=== PATIENT | male | born 2000 | race American Indian/Alaskan Native ===

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

== ENCOUNTER 2021-12-29 10:47 | Emergency (ER) | payer SELFPAY ==
[2021-12-29 11:12] VITALS: BP 149/93
== END 2021-12-30 01:34 | disposition left against medical advice (07) ==
LOC: ED 10:47
DX: Z04.1 Encounter for examination and observation following transport accident (principal); Z53.21 Procedure and treatment not carried out due to patient leaving prior to being seen by health care provider; V49.9XXA Car occupant (driver) (passenger) injured in unspecified traffic accident, initial encounter; Y93.89 Activity, other specified; Y92.89 Other specified places as the place of occurrence of the external cause; Y99.8 Other external cause status